=== PATIENT | male | born 1985 | race Caucasian/White ===

== ENCOUNTER 2020-08-03 10:05 | Emergency (ER) | payer BC, SELFPAY ==
[2020-08-03] VITALS (12 sets, daily range): BP systolic 123–137; BP diastolic 71–82; PULSE 61–86; RESP 12–23; TEMP 36.4; O2SAT 94–97
--- NOTE | 2020-08-03 10:00 | RT.EKG_ITS ---
APPROVED REPORT Exam: Resting ECG Patient Location: E HR:64 bpm ECG Measurements Heart Rate 64 AXIS NE 180 P -9 QRSd 85 QRS 55 QT 351 T 54 QTc 363 Conclusion Sinus rhythm...normal P axis, V-rate 60- 99 ST elev, probable normal early repol pattern...ST elevation, age<55
--- NOTE | 2020-08-03 10:15 | DI.RAD_ITS ---
EXAM: XR CHEST 2V PA LATERAL CLINICAL HISTORY: chest pain TECHNIQUE: 2D digital imaging was performed. COMPARISON: No exams were available for comparison FINDINGS: MEDIASTINUM: Normal. HEART: Normal. PULMONARY VASCULATURE: Normal. LUNGS: Clear. PLEURAL SPACE: No pleural effusion or pneumothorax. BONE:Within normal limits for the patient's age. OTHER FINDINGS:Normal. IMPRESSION: No acute pulmonary findings. DATA REPOSITORY: RADIATION DOSE DELIVERED:
--- NOTE | 2020-08-03 10:19 | W.ED.GENAD ---
Discharge Plan Disposition Patient Disposition: AGAINST MEDICAL ADVICE Condition: Stable Discharge Details Chief Complaint: Chest Pain Clinical Impression: Chest pain Primary Care Provider: David Crystal ED Provider: Alfredo Burks Home Meds and New Rx's Prescriptions: No Action No Known Home Meds RF: 0 Discharge Instructions Instructions: Chest Pain (ED) Additional Instructions: your xray and initial lab work did not show any concerning findings, you chose not to stay for repeat blood work Follow up with your primary care provider as soon as possible especially if pain continues if you feel more pain, difficulty breathing or feel more ill return to the emergency department Medical Decision Making 35 yo male who denies medical problems and denies smoking history comes in with cc of chest pain. He states he was at work lifting boxes around 8am when he had left sided chest pain without radiation and no diaphesis or n/v. He took 81mg asa and this resolved the pain and has no pain now. He has no rashes on the chest wall, normal lung sounds and no murmurs. Given how brief the pain was and was associated with lifting boxes suspect chest wall pain. Wells low and perc negative so doubt PE. No tearing back pain and normal neurovascular exam so doubt dissection. No abdominal tenderness so doubt intrabdominal pathology such as cholecystitis, pancreatitis or other surgical pathology such as aaa or appendicitis. He has a heart score of 1, will obtain troponin and monitor. xray and labs show no significant abnormalities and he remains pain free. I recommended waiting for a second troponin and ekg but he doesn't want to wait for this and wants to leave. He has capacity to make his own decisions and understands risks of leaving if an PA is missed including possible and permanent disability and he is willing to accept these risks. HE understands he can return at any time if he changes his mind Differential Diagnosis Differential Diagnosis: chest wall pain, spasm, nstemi, ptx Lab Data Lab results reviewed: Yes I reviewed the patient's lab results. ECG Data Attestation: I personally reviewed and interpreted this ECG (s) as follows: Prior ECG tracings: not available for review Interpretation: sinus rhythm, rate of 64, pr 180, qtc 363 HPI General Mode of arrival: ambulatory. Date/Time Provider Initiated Documentation: 08/03/20 10:06. Limitations to Documentation: no limitations. Information obtained by: patient. History of Present Illness 35 year old M presents to the emergency department with the chief complaint of left sided chest pain, described as moderate, Patient started experiencing this hour(s) (2) and it has been now resolved. No relieving factors improve symptom(s), No exacerbating factors reported . Patient notes no other symptoms.. Patient did receive the following treatments prior to arrival, Aspirin Related Data Home Medications Medication Instructions Recorded Confirmed Unknown [No Known Home Meds] 08/03/20 08/03/20 Allergies Allergy/AdvReac Type Severity Reaction Status Date / Time No Known Allergies Allergy Unverified 08/03/20 10:17 General Stated Complaint: Chest Pain TESS: 2 Review of Systems All systems reviewed & are unremarkable except as noted in HPI and below Constitutional Constitutional: Denies chills, Denies fever(s) and Denies weakness Cardiovascular Cardiovascular: Denies dyspnea Respiratory Respiratory: Denies cough and Denies dyspnea Gastrointestinal Gastrointestinal: Denies abdominal pain, Denies nausea and Denies vomiting Musculoskeletal Musculoskeletal: Denies joint swelling Neurologic Neurologic: Denies weakness [facility] Surgical History Cholecystectomy (10/07/16) Family History Mother No problems noted. Father No problems noted. Sister No problems noted. Brother No problems noted. Grandfather No problems noted. Grandfather No problems noted. Grandmother No problems noted. Grandmother No problems noted. Social History Smoking/Tobacco Use Status: Never Smoking risk assessment performed?: Yes Alcohol Intake: current Alcohol Intake frequency: a few times a month Drug use: Never Substance use type: does not use Do you feel safe at home: Yes Do you feel safe in your relationship?: Yes Exam Const General: no acute distress Orientation: alert HENMT Head: normal to inspection Ears: external ears normal General nose exam: external nose normal Mouth: moist mucous membranes Eyes General: appearance normal, both eyes and all related structures Neck Neck: normal visual inspection Resp Effort & Inspection: normal respiratory effort and able to speak in complete sentences Cardio Rate: regular rate Skin General skin exam: no rashes or lesions noted Neuro General: patient alert and patient oriented x3 Extrem General: normal to inspection Psych Mental Status: mental status grossly normal Course Vital Signs Vital signs: Vital Signs Temperature 36.4 C L 08/03/20 10:14 Pulse 86 08/03/20 10:14 Respiratory Rate 18 08/03/20 10:14 Blood Pressure 137/77 08/03/20 10:14 Pulse Oximetry 96 08/03/20 10:14 Temperature 36.4 C L 08/03/20 10:14 Temperature Source Skin 08/03/20 10:14 Pulse 86 08/03/20 10:14 Respiratory Rate 18 08/03/20 10:14 Respiratory Effort Non-Labored 08/03/20 10:14 Respiratory Depth Normal 08/03/20 10:14 Respiratory Pattern Normal 08/03/20 10:14 Blood Pressure 137/77 08/03/20 10:14 Blood Pressure Position Sitting 08/03/20 10:14 Pulse Oximetry 96 08/03/20 10:14 Oxygen Delivery Method Room Air 08/03/20 10:14 Oxygen Flow Rate 0 08/03/20 10:14 Pain Level 1 08/03/20 10:14
[2020-08-03 11:34] LABS: ALT 53 U/L (16-63); AST 26 U/L (15-37); Albumin 3.5 g/dL (3.4-5.0); Alkaline Phosphatase 100 U/L (46-116); Anion Gap 10.2 mmol/L (3-11); BUN 19 mg/dL (7-18); Bilirubin, Direct 0.06 mg/dL (0.00-0.20); Bilirubin, Total 0.3 mg/dL (0.2-1.0); CO2 21.8 mmol/L (21.0-32.0); Calcium 8.9 mg/dL (8.5-10.1); Chloride 114 mmol/L (98-107); Glucose 104 mg/dL (74-106); Lipase 122 U/L (73-393); Magnesium 2.3 mg/dL (1.8-2.4); Potassium 4.1 mmol/L (3.5-5.1); Sodium 146 mmol/L (136-145); Total Protein 6.9 g/dL (6.4-8.2)
[2020-08-03 11:35] LABS: Troponin I < 0.05 ng/mL (<0.06)
== END 2020-08-03 13:50 | disposition left against medical advice (07) ==
PROVIDERS: Emergency Provider Emergency Medicine; PCP Family Medicine
DX: R07.89 Other chest pain (principal); Z53.29 Procedure and treatment not carried out because of patient's decision for other reasons
CPT/HCPCS: 36415; 80053; 83690; 93005; 99285; 71046; 82248; 83735; 84484; 93010; 99284

== ENCOUNTER 2022-01-03 01:35 | Outpatient (CLI) | payer BC, SELFPAY ==
--- OUTSIDE RECORDS SUMMARY | 2022-01-03 01:39 | XMS_ITS | Clinical Summary ---
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
--- OUTSIDE RECORDS SUMMARY | 2022-01-03 01:39 | XMS_ITS | Encounter Summary ---
:1985 Author Organization [facility] Address [address] [place] [address] Care Team Providers Name Role Phone Unavailable Primary Care Provider Unavailable Encounter Details Date Type Department Care Team Description 12/22/2014 Hospital Encounter [facility]- Staci Unknown, Provider, [facility] [address] [facility] [phone] [place] [address] (Work) [phone] Social History Tobacco Use Types Packs/Day Years Used Date Never Assessed Sex Assigned at Date Recorded Not on file documented as of this encounter Discharge Disposition Disposition Code Departure Means Destination Home or Self Snf documented in this encounter Plan of Treatment Not on filedocumented as of this encounter Visit Diagnoses Not on filedocumented in this encounter
--- OUTSIDE RECORDS SUMMARY | 2022-01-03 01:39 | XMS_ITS | Encounter Summary ---
:1985 Author Organization [facility] Address [address] [place] [address] Care Team Providers Name Role Phone Unknown, Provider Primary Care Provider Encounter Details Date Type Department Care Team Description 12/22/2014 Results Only [facility] David Crystal MD [phone] [address] [place], [place] [id number] (Wo rk) Social History Tobacco Use Types Packs/Day Years Used Date Never Assessed Sex Assigned at Date Recorded Not on file documented as of this encounter Plan of Treatment Not on filedocumented as of this encounter Procedures Procedure Name Priority Date/Time Associated Diagnosis Comme nts SURGICAL PATHOLOGY Routine 12/22/2014 10:08 Resul ts for this EDT procedure are i n the results section. documented in this encounter Results SURGICAL PATHOLOGY (12/22/2014 10:08 EDT) Pathology SURGICAL PATHOLOGY REPORT [facility] MEDICAL Report: Reports generated via electronic interface conta in original data; CENTER however they are lacking the format of the original re port. LABORATORY Caution should be taken when reading/interpretin g unformatted reports. SERVICES Name: ? ALFREDO MERAZ ? Accession #: ? [id number] ? : ? 1985 (Age: [age]) ??M ? Collect Date: ? 12/22/2014 ? Location: ? [facility] ? Receive Date: ? 12/24/19 15 ? Provider: DAVID CRYSTAL MD Copy to: ? Final Pathologic Diagnosis: SKIN OF BACK, MID UPPER, EXCISIONAL BIOPSY: - Melanocytic nevus, compound type, with unusual archi tectural features and moderate cytologic atypia. ??See microscopic and comme nt. - Lesion extends to peripheral margin of excision spe cimen. - Lesion measures approximately 2.0 mm to the deep ma rgin. Comment: The features are those of a moderately atypical melanocytic nevus. ??The nevus is associated with an irregular distribution of melanin p igment, both within melanocytes as well as within dermal williams anophages. ??The lesion extends to the peripheral margin of the exc isional biopsy. ??If this is a smaller sampling of a larger lesion, the findings may not be leather goods sales representative of the lesion as a whole. Clinical correlation is recommended. ??(Dr. Loza)/perlita pickard Microscopic Description: The epidermis is hyperplasti c with elongate and anastomosing rete ridges. ??There is a compound proliferation of melanocytes with both e pidermal and dermal components. ??The junctional melanocytes are arranged in nests and as individual cells. ??The nests predominate but vary to moderate degree in size, shape, and spacing. ??The nests are located between and the sides of rete ridges, in addition to at the tips of the ridges. ??Nests b ridge rete ridges. ??Focally, individual melanocytes are prominent and unevenly spaced but show no confluent growth or well-developed upward migration. ??The melanocytes are enlarged and have ill-defined cytoplasm containing melanin pigment. ??The nuclei show a moderate degree of size and shape variation with occas ional large, irregular forms. ??The dermal componen t consists of nests and cords of similar melanocytes that show hotel front desk agent maturation with descent. ??There is papillary dermal fibroplasia. ??[place]-1 (Melan -A) ALK PHOS (A103, [place]) does not show evidence of well developed confluent growth or upward migration. ??Deeper levels have been examined. ??(Dr. Loza)/sukh NOTE: ??One or more of the reagents used in immunohistochemical testing in this case may not have been cleared or approved by the U.S. Food and Drug Administration (FDA). ??The FDA has determined that such clearance or approval is not necessary. ??These tests are used for clinical purposes. ??They should not be regarded as investigational or for research. ??These r eagents' performance characteristics have been determined by [facility]. ??This laboratory is certified under the Clinical Laboratory Improvement Amendments of 1988 (CLIA-88) as qualified to per form high complexity clinical laboratory testing. ?? Document reviewed and electronically signed by: KANIKA LOZA MD Report ??Date: 12/26/2014 13:59 By the signature above, the attending physician certif ies that he/she has personally conducted a gross and/or microscopic examin ation of the described specimens and rendered or confirmed the above diagnosi s. Specimen(s) Received: Excisional bx mid upper back Clinical History: Deeply pigmented nevus back; ? dysplastic Gross Description: ? Received in formalin labelled with proper patient identification (initials B, M) and back excision is an unoriented elliptical excision of pink-hancock hairbearing skin (1.0 x 0.6 cm and is excised to a depth of 0.2 cm). There is a central hancock-brown macule mohit t measures 0.6 x 0.5 x 0.1 cm. The margins are inked blue. The specimen is serially sectioned and entirely submitted as 1 central sections and 2 tips, reverse en face. 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
--- OUTSIDE RECORDS SUMMARY | 2022-01-03 01:39 | XMS_ITS | Encounter Summary ---
:1985 Author Organization [facility] Address [address] [place] [address] Care Team Providers Name Role Phone Unknown, Provider Primary Care Provider Encounter Details Date Type Department Care Team Description 10/07/2016 Results Only [facility] Chay Daniels, DO [address] [facility] [address] [place] [address] (Wo rk) Social History Tobacco Use Types Packs/Day Years Used Date Never Assessed Sex Assigned at Date Recorded Not on file documented as of this encounter Plan of Treatment Not on filedocumented as of this encounter Procedures Procedure Name Priority Date/Time Associated Diagnosis Comme nts SURGICAL PATHOLOGY Routine 10/07/2016 8:38 EDT Re sults for this procedure are i n the results section. documented in this encounter Results SURGICAL PATHOLOGY (10/07/2016 8:38 EDT) Pathology Report: SURGICAL PATHOLOGY REPORT [facility] Reports generated via electronic interface contain christopher ginal data; SERVICES however they are lacking the format of the original re port. Caution should be taken when reading/interpreting unfo rmatted reports. Name: ? ALFREDO MERAZ ? Accession #: ? [id number] ? : ? 1985 (Age: 3 1) ??M ?Collect Date: ? 10/07/2016 ? Location: ? [facility] ? Receive Date: ? 10/09/19 17 ? Provider: CHAY DANIELS DO Copy to: JED RESENDIZ MD ? Addendum ? Date Ordered: ? 10/10/2016 ? Status: Sig erlin Out ? Date Complete: ? 10/10/2016 ? By: CARLOS RIDLEY MD ? Date Reported: ? 10/10/2016 ? Addendum Comment Additional to the report just signed out, the gallblad olinda also has mild cholesterolosis. There is no change in the diagnosis. Document reviewed and electronically signed by: ? CARLOS RIDLEY MD ? Report date: 10/10/2016 By the signature above, the attending physician certif ies that he/she has personally conducted a gross and/or microscopic examin ation of the described specimens and rendered or confirmed the above diagnosi s. Final Report Final Pathologic Diagnosis: A. GALLBLADDER, CHOLECYSTECTOMY: - ??Chronic cholecystitis. - ??Cholelithiasis. ? Gross Description: ? Received in formalin labelled with proper patient identification (initials B, M) and gallbladder is an intact gallbladder (10.3 x 3.6 x 3.1 cm) with a segment of cystic duct (0.4 cm in length x 0.2 cm in d iameter). ? The serosa is hancock-pur ple and focally hyperemic. The mucosa is hancock-green, velvety and focally eroded with yellow streaking and t he wall is 0.2 cm in thickness. The cystic duct lumen is patent. The cystic duct margin is inked blue. Multiple large brown p olygonal choleliths are present measuring 4.8 x 3.4 x 2.2 cm in aggregate. ? Two maintenance representative se ctions and the inked en face cystic duct margin are submitted in 1. Maira Owusu 10/08/2016 2:21 PM ? Clinical History: Cholelithiasis, biliary colic ? Specimens Received: Gallbladder Document reviewed and electronically signed by: ? CARLOS RIDLEY MD ? Report ??Date: 10/10/2016 12:57 By the signature above, the attending physician certif ies that he/she has personally conducted a gross and/or microscopic examin ation of the described specimens and rendered or confirmed the above diagnosi s. End of Report Specimen Performing Organization Address City/State/ZIP Code Phon e Number [facility] [address] [place] [address] SERVICES documented in this encounter Visit Diagnoses Not on filedocumented in this encounter Care Teams Radiographic Technologist Relationship Specialty Start Date End Date Unknown, Provider, PCP - General 12/23/14 10/09/16 documented as of this encounter
[2022-01-03 12:49] LABS: HCT 50.3 % (40.0-50.0); HGB 15.7 g/dL (13.5-17.5); MCH 30.6 pg (27.0-33.0); MCHC 31.2 % (32.0-36.0); MCV 98 fL (80-95); MPV 10.6 fL (8.0-11.0); Platelet Count 233 10^3/uL (130-400); RBC 5.13 10^6/uL (4.36-5.78); RDW 13.2 % (11.8-14.1); RDW-SD 47.6 fL; WBC 6.83 10^3/uL (4.4-10.8)
[2022-01-03 13:31] LABS: ALT 75 U/L (16-63); AST 46 U/L (15-37); Albumin 3.2 g/dL (3.4-5.0); Alkaline Phosphatase 87 U/L (46-116); Anion Gap 10.5 mmol/L (3-11); BUN 17 mg/dL (7-18); Bilirubin, Total 0.2 mg/dL (0.2-1.0); CO2 22.5 mmol/L (21.0-32.0); Calcium 8.6 mg/dL (8.5-10.1); Chloride 110 mmol/L (98-107); Cholesterol 224 mg/dL (<200); Glucose 102 mg/dL (74-106); HDL Cholesterol 42 mg/dL (40-60); Potassium 4.4 mmol/L (3.5-5.1); Sodium 143 mmol/L (136-145); TSH (W/Ref FT4) 2.59 uIU/mL (0.36-3.74); Total Protein 6.5 g/dL (6.4-8.2); Triglyceride 535 mg/dL (<150)
[2022-01-03 14:13] LABS: LDL CHOLESTEROL 114 mg/dL (<100)
[2022-01-03 14:20] LABS: Lipase 114 U/L (73-393)
[2022-01-06 13:34] LABS: IgA 217 mg/dL (85-499); Interpretation (See Note); Tissue Transglutaminase IgA <1.2 U/mL (<4.0)
== END 2022-01-03 01:36 | disposition home or self-care (01) ==
LOC: LOS 01:37
PROVIDERS: PCP Family Medicine; Visit Provider Family Medicine
DX: I10 Essential (primary) hypertension (principal); R19.7 Diarrhea, unspecified; Z13.6 Encounter for screening for cardiovascular disorders
CPT/HCPCS: 36415; 80053; 80061; 82784; 83516; 83690; 83721; 85027; 84443

== ENCOUNTER 2022-11-22 07:48 | Emergency (ER) | payer BC, SELFPAY ==
[2022-11-22 07:54] VITALS: BP 136/75; PULSE 68; RESP 18; TEMP 36.5; O2SAT 98
--- NOTE | 2022-11-22 08:30 | DI.RAD_ITS ---
Exam(s) XR FOOT RT COMPLETE EXAM: XR FOOT RT COMPLETE CLINICAL HISTORY: laceration, trauma. TECHNIQUE: 2D digital imaging was performed. COMPARISON: No exams were available for comparison FINDINGS: 3 views There is an oblique fracture in the proximal half of the proximal phalanx of the 5th toe, with mild d isplacement. No other fractures. No osseous lesions. No radiopaque foreign body. Inferior calcane al spur incidentally noted. IMPRESSION: Mildly displaced fracture of the proximal phalanx of the 5th toe. There does not appear to be fractu re extension into the metatarsophalangeal joint. DATA REPOSITORY: RADIATION DOSE DELIVERED:
--- NOTE | 2022-11-22 09:17 | DI.VRAD_ITS ---
PROCEDURE INFORMATION: Exam: XR Right Foot Exam date and time: 11/22/2022 9:02 AM Age: 37 years old Clinical indication: Injury or trauma; Other: Laceration; Foot; Right; Foreign body involvement not specified; Injury details: Attention little toe TECHNIQUE: Imaging protocol: Radiologic exam of the right foot. Views: 3 or more views. COMPARISON: No relevant prior studies available. FINDINGS: Bones/joints: Mildly displaced oblique fracture proximal phalanx 5th digit in the proximal shaft. No definite articular extension. Soft tissues: Normal. IMPRESSION: Mildly displaced oblique fracture proximal phalanx 5th digit in the proximal shaft. No definite articular extension. Dictated and Authenticated by: Maral Priest MD. Ordering:PHANI Ramos MD
[2022-11-22 10:03] VITALS: BP 129/74; PULSE 71; RESP 18; O2SAT 97
--- NOTE | 2022-11-22 12:55 | ED.GENADUL_ITS ---
Discharge Plan Disposition Patient Disposition: Home Discharge Details Clinical Impression: Open fracture of fifth toe of right foot Primary Care Provider: David Crystal ED Provider: Rachel Lion Home Meds and New Rx's Prescriptions: New cephalexin 500 mg capsule 500 mg PO Q6H 7 Days Qty: 28 0RF Discharge Instructions Additional Instructions: Take antibiotics as prescribed Ibuprofen and Tylenol as needed for pain Take the Keflex as prescribed Change the dressing and apply elliott tape daily Follow-up with orthopedics Return earlier should he have new or worsening complaints Stand Alone Forms: Work Release Referrals: David Crystal MD [Primary Care Provider] - Discharge Data Discharge Date/Time-TO BE ENTERED AT DEPARTURE: 11/22/22 10:04 Medical Decision Making 37-year-old male presents with report of laceration and injury to right fifth digit X-ray was ordered which shows an oblique fracture with adjacent laceration, concern for open fracture We will start on Keflex We will elliott tape and placed in a postop shoe We will refer to orthopedics Suture removal in 12 days Medical Records Medical records reviewed: Yes I reviewed the patient's medical records. Lab Data Lab results reviewed: Yes I reviewed the patient's lab results. HPI General Date/Time Provider Initiated Documentation: 11/22/22 08:05 . HPI Narrative: This 37-year-old male presents with report of injury to right fifth digit. He reportedly hit his toe on the wall when he was carrying his cat in from outside. He states his tetanus is up-to-date. He denies any additional complaints. He is not anticoagulated. Related Data Home Medications Medication Instructions Recorded Confirmed cephalexin 500 mg capsule 500 mg PO Q6H 7 days #28 caps 11/22/22 Previous Rx's Medication Instructions Recorded cephalexin 500 mg capsule 500 mg PO Q6H 7 days #28 caps 11/22/22 Allergies Allergy/AdvReac Type Severity Reaction Status Date / Time No Known Allergies Allergy Unverified 11/22/22 07:57 General Stated Complaint: Laceration TESS: 4 PFSH All Active Problems (Updated 11/22/22 @ 09:53 by ROMEO Bourgeois) Open fracture of fifth toe of right foot (Acute) Hyperlipidemia (Acute) 12/2021, Elevated liver function tests (Acute) 12/2021, mildly elevated transaminases Diarrhea (Acute) Surgical History (Updated 12/16/21 @ 16:38 by Alec Jaeger MD) Cholecystectomy (10/07/16) History of cataract surgery about 2018, right, traumatic Family History Mother No problems noted. Father No problems noted. Sister No problems noted. Brother No problems noted. Grandfather No problems noted. Grandfather No problems noted. Grandmother No problems noted. Grandmother No problems noted. Social History (Updated 12/17/21 @ 10:50 by Marifer Stewart) Smoking/Tobacco Use Status: Never Smoking risk assessment performed?: Yes Alcohol Intake: current Alcohol Intake frequency: a few times a month Alcohol type: beer and hard liquor Drug use: Never Substance use type: does not use Caregiver/Support person: No Household members: spouse Housing: apartment Communication Needs: None Do you need help understanding health information?: Never Pets and animals: Yes Pets and animals: cat(s) Sexually active: Yes Do you think of yourself as: straight/heterosexual Current gender identity: male What is your relationship status?: How often do you talk on the phone with friends or family?: once per week How often do you get together with friends or relatives?: twice per week How often do you attend caodaism or synagogue services?: decline to answer Do you belong to any clubs or organized social groups?: yes Panel score (0-1 are the most socially isolated patients): 3 What type of physical activity do you participate in: bicycling, weight lifting and other Details: Stretching Alisson/Cheondoism: No preference Do you feel safe at home: Yes Do you feel safe in your relationship?: Yes Exam Extrem Other: Right fifth digit with laceration on the plantar aspect of foot, fifth digit Course Vital Signs Vital signs: Vital Signs Temperature 36.5 C 11/22/22 07:54 Pulse 68 11/22/22 07:54 Respiratory Rate 18 11/22/22 07:54 Blood Pressure 136/75 11/22/22 07:54 Pulse Oximetry 98 11/22/22 07:54 Temperature 36.5 C 11/22/22 07:54 Temperature Source Temporal Artery Scan 11/22/22 07:54 Pulse 71 11/22/22 10:03 Respiratory Rate 18 11/22/22 10:03 Respiratory Effort Normal, Non-Labored 11/22/22 07:58 Blood Pressure 129/74 11/22/22 10:03 Blood Pressure Position Sitting 11/22/22 07:54 Pulse Oximetry 97 11/22/22 10:03 Oxygen Delivery Method Room Air 11/22/22 07:54 Oxygen Flow Rate 0 11/22/22 07:54 Procedures Laceration Laceration 1: Site: lower extremity Side (If applicable): right Size (cm): 1 Description: linear Depth: simple, single layer Local Anesthetic: Lidocaine 1% Amount of anesthesia used (mL): 2 Pre-repair: wound explored and irrigated extensively Skin layer closed with: nylon Size (cm): 4-0 Number of sutures: 2 Technique: simple, interrupted PAWSS Have you Been Recently Intoxicated or Drunk Within the Last 30 days?: No Have you Ever Experienced Previous Episodes of Alcohol Withdrawal?: No Have you ever Experienced Withdrawal Seizures?: No Have you ever Experienced Delirium Tremens(DT)s?: No Have you ever undergone Alcohol Rehabilitation Treatment (i.e, inpt ot outpatient treatment programs)?: No Have you ever Experienced Blackouts?: No Have you ever Combined Alcohol with other Downers within the last 90 days?: No Have you ever Combined Alcohol with any other Substance of Abuse during the last 90 days?: No Positive Blood Alcohol level on Presentation? [PCS.BAL]: No Evidence of Increased Autonomic Activity (i.e. HR>120, tremor, sweating, agitation, nausea)?: No Result: 0
== END 2022-11-22 10:04 | disposition home or self-care (01) ==
PROVIDERS: Emergency Provider Physician Assistant; PCP Family Medicine
DX: S92.501A Displaced unspecified fracture of right lesser toe(s), initial encounter for closed fracture (principal); S91.114A Laceration without foreign body of right lesser toe(s) without damage to nail, initial encounter; W22.8XXA Striking against or struck by other objects, initial encounter
CPT/HCPCS: 12001; 99283; 73630; J3490

== ENCOUNTER 2022-12-03 15:36 | Outpatient (CLI) | payer BC, SELFPAY ==
--- NOTE | 2022-12-03 14:30 | DI.RAD_ITS ---
Exam(s) XR FOOT RT COMPLETE EXAM: XR FOOT RT COMPLETE CLINICAL HISTORY: F/U FRACTURE. TECHNIQUE: 2D digital imaging was performed of the right foot. Three images were obtained. AP, obl ique and lateral views were obtained. COMPARISON: CR,XR XR FOOT RT COMPLETE from 11/22/2022 FINDINGS: BONES: There has been no change in alignment of the fracture involving the proximal phalanx of the ri ght 5th toe. No bony destructive lesion is seen. There is a plantar calcaneal spur. There is an ent hesophyte at the posterior calcaneus. JOINTS: No dislocation present. The joint spaces are well maintained. SOFT TISSUE: Atherosclerosis is present. IMPRESSION: Stable fracture of the proximal phalanx of the 5th toe. DATA REPOSITORY: RADIATION DOSE DELIVERED:
== END 2022-12-03 15:37 | disposition home or self-care (01) ==
LOC: DIORS 15:36
PROVIDERS: PCP Family Medicine; Referring Provider Family Medicine; Visit Provider Student in an Organized Health Care Education/Training Program
DX: S92.511D Displaced fracture of proximal phalanx of right lesser toe(s), subsequent encounter for fracture with routine healing (principal); X58.XXXD Exposure to other specified factors, subsequent encounter
CPT/HCPCS: 73630

== ENCOUNTER 2022-12-31 11:35 | Outpatient (CLI) | payer BC, SELFPAY ==
--- NOTE | 2022-12-31 12:02 | DI.RAD_ITS ---
Exam(s) XR FOOT RT COMPLETE EXAM: XR FOOT RT COMPLETE CLINICAL HISTORY: RIGHT FOOT F/U. TECHNIQUE: 2D digital imaging was performed. Three views. COMPARISON: CR XR FOOT RT COMPLETE from 12/03/2022 FINDINGS: There has been no change in the alignment of the fracture of the proximal phalanx of the little toe. No new abnormalities identified. Heel spurs and vascular calcifications are again noted. DATA REPOSITORY: RADIATION DOSE DELIVERED:
== END 2022-12-31 11:36 | disposition home or self-care (01) ==
LOC: DIORS 11:35
PROVIDERS: PCP Family Medicine; Referring Provider Family Medicine; Visit Provider Student in an Organized Health Care Education/Training Program
DX: S92.511D Displaced fracture of proximal phalanx of right lesser toe(s), subsequent encounter for fracture with routine healing (principal); X58.XXXD Exposure to other specified factors, subsequent encounter
CPT/HCPCS: 73630